=== PATIENT | male | born 1955 | race Caucasian/White ===

== ENCOUNTER 2020-06-29 14:17 | Emergency (ER) | payer OTHER ==
[~2020-06-29 14:17] MED LIST: ASPIRIN CHEWABL81 MG PO; CENTRUM SILVER1 EAC1 PO; CETIRIZINE HCL10 MG PO; CIPRO500 MG PO; CLARITIN10 MG PO; FLAGYL500 MG PO; GLUCOPHAGE 850850 MG PO; LEVOFLOXACIN500 MG PO; LISINOPRIL-HCT1 EACH PO; TYLENOL325 MG PO; VITAMIN C250 MG PO; ZESTRIL10 MG PO; ZOFRAN4 MG PO; ZYVOX600 MG PO
[2020-06-29] MEDS ORDERED: AUGMENTIN 875-1 EACH PO (16:30)
== END 2020-06-29 16:45 | disposition home or self-care (01) ==
LOC: ER1 14:17
DX: S61.217A Laceration without foreign body of left little finger without damage to nail, initial encounter (principal); E11.9 Type 2 diabetes mellitus without complications; I10 Essential (primary) hypertension; W22.8XXA Striking against or struck by other objects, initial encounter; Y92.009 Unspecified place in unspecified non-institutional (private) residence as the place of occurrence of the external cause
CPT/HCPCS: 12001; 73140; 99283

== ENCOUNTER 2020-09-29 20:17 | Emergency (ER) | payer OTHER ==
[~2020-09-29 20:17] MED LIST changes: +AUGMENTIN 875-1 EACH PO
[2020-09-29 20:48] LABS: HEMOGLOBIN 16.2 gm/dl (14.0-17.5); RED BLOOD COUNT 5.18 M/UL (4.20-5.50); WHITE BLOOD COUNT 11.4 K/UL (4.5-11.0)
[2020-09-29 21:10] LABS: BUN/CREATININE RATIO 22 (0-10)
== END 2020-09-30 01:23 | disposition home or self-care (01) ==
LOC: ER1 20:17
PROVIDERS: Family Medicine
DX: R07.9 Chest pain, unspecified (principal); I10 Essential (primary) hypertension; E11.65 Type 2 diabetes mellitus with hyperglycemia; R00.0 Tachycardia, unspecified
CPT/HCPCS: 71045; 80053; 82550; 82553; 83874; 84484; 85025; 85379; 93005; 99285

== ENCOUNTER → 2020-12-17 | Outpatient (CLI) | payer OTHER | LOC: HEART 5 12-11 08:00 | DX: R07.9 Chest pain, unspecified (principal); R94.39 Abnormal result of other cardiovascular function study | CPT/HCPCS: 78452; 93306; A9502; J2785 ==

== ENCOUNTER 2021-03-25 07:10 | Inpatient (IN) | payer OTHER ==
[~2021-03-25] VITALS: Ht 182.9 cm; Wt 117.9 kg
[2021-03-25 08:06] LABS: HEMOGLOBIN 14.9 gm/dl (14.0-17.5); RED BLOOD COUNT 4.92 M/UL (4.20-5.50); WHITE BLOOD COUNT 5.8 K/UL (4.5-11.0)
[2021-03-25 08:42] LABS: BUN/CREATININE RATIO 16 (0-10)
[2021-03-25] MEDS ORDERED: ZESTORETIC 10-1 EACH PO (13:59)
[2021-03-25] MEDS ORDERED: MULTIVITAMIN1 EACH PO (14:00)
[2021-03-26 06:46] LABS: RED BLOOD COUNT 4.62 M/UL (4.20-5.50); WHITE BLOOD COUNT 5.6 K/UL (4.5-11.0)
[2021-03-26 07:14] LABS: BUN/CREATININE RATIO 20 (0-10)
[2021-03-27 06:25] LABS: HEMOGLOBIN 13.7 gm/dl (14.0-17.5); RED BLOOD COUNT 4.68 M/UL (4.20-5.50)
[2021-03-27 06:27] LABS: WHITE BLOOD COUNT 13.1 K/UL (4.5-11.0)
[2021-03-27 06:42] LABS: BUN/CREATININE RATIO 22 (0-10)
[2021-03-28 07:39] LABS: RED BLOOD COUNT 4.39 M/UL (4.20-5.50); WHITE BLOOD COUNT 11.4 K/UL (4.5-11.0)
[2021-03-28 08:03] LABS: BUN/CREATININE RATIO 23 (0-10)
[2021-03-28] MEDS ORDERED: PROVENTIL HFA6.7 GM INH (12:15)
[2021-03-28] MEDS ORDERED: DOXYCYCLINE HY100 MG PO (12:15)
[2021-03-28] MEDS ORDERED: MEDROL DOSEPAK 24 MG PO (12:15)
[2021-03-28] MEDS ORDERED: OMNICEF 300 MG300 MG PO (12:15)
[2021-03-28] MEDS ORDERED: GLUCOPHAGE 500500 MG PO (12:17)
== END 2021-03-28 13:36 | disposition home or self-care (01) | DRG 177 ==
LOC: ER1 07:10 → CDU 10:25 → MED SURG 4 12:56
PROVIDERS: ADMIT Internal Medicine
PROC: XW033E5 Introduction of Remdesivir Anti-infective into Peripheral Vein, Percutaneous Approach, New Technology Group 5 (ICD-10-PCS; principal; 2021-03-25)
PROC: 3E0333Z Introduction of Anti-inflammatory into Peripheral Vein, Percutaneous Approach (ICD-10-PCS; 2021-03-25)
PROC: 8E0ZXY6 Isolation (ICD-10-PCS; 2021-03-25)
DX: U07.1 COVID-19 (principal); J12.82 Pneumonia due to coronavirus disease 2019; J96.01 Acute respiratory failure with hypoxia; E87.1 Hypo-osmolality and hyponatremia; D72.829 Elevated white blood cell count, unspecified; T38.0X5A Adverse effect of glucocorticoids and synthetic analogues, initial encounter; E66.9 Obesity, unspecified; E87.6 Hypokalemia; R19.7 Diarrhea, unspecified; E11.9 Type 2 diabetes mellitus without complications; Z79.82 Long term (current) use of aspirin; Z91.14 Patient's other noncompliance with medication regimen; Z68.35 Body mass index [BMI] 35.0-35.9, adult
CPT/HCPCS: 36415; 36600; 71045; 80053; 82550; 82553; 82728; 82803; 82962; 83036; 83735; 83874; 84132; 84484; 85025; 85027; 85379; 86140; 87040; 93005; 93970; 94640; 94664; 94760; 99285; J0696; J1100; J1335; J1650; J7030; Q9967; U0002

== ENCOUNTER 2021-05-20 07:27 | Emergency (ER) | payer OTHER ==
[~2021-05-20 07:27] MED LIST changes: +DOXYCYCLINE HY100 MG PO; +GLUCOPHAGE 500500 MG PO; +MEDROL DOSEPAK 24 MG PO; +MULTIVITAMIN1 EACH PO; +OMNICEF 300 MG300 MG PO; +PROVENTIL HFA6.7 GM INH; +ZESTORETIC 10-1 EACH PO
[2021-05-20 09:41] LABS: BUN/CREATININE RATIO 21 (0-10)
[2021-05-20 10:04] LABS: HEMOGLOBIN 15.9 gm/dl (14.0-17.5); RED BLOOD COUNT 5.4 M/UL (4.20-5.50); WHITE BLOOD COUNT 12.3 K/UL (4.5-11.0)
[2021-05-20] MEDS ORDERED: ONDANSETRON ODT4 MG SL (15:07)
[2021-05-20] MEDS ORDERED: PROTONIX40 MG PO (15:07)
[2021-05-21] MEDS ORDERED: GLUCOPHAGE 850850 MG PO (13:58)
[2021-05-21] MEDS ORDERED: CETIRIZINE HCL10 MG PO (14:00)
[2021-05-21] MEDS ORDERED: LISINOPRIL2.5 MG PO (14:00)
[2021-05-21] MEDS ORDERED: METOPROLOL TART50 MG PO (14:01)
[2021-05-21] MEDS ORDERED: ISOSORBIDE MONO30 MG PO (14:01)
== END 2021-05-20 15:35 | disposition home or self-care (01) ==
LOC: ER1 07:27
PROVIDERS: Physician Assistant
DX: K76.0 Fatty (change of) liver, not elsewhere classified (principal); K82.8 Other specified diseases of gallbladder; R07.9 Chest pain, unspecified; R00.0 Tachycardia, unspecified; E11.9 Type 2 diabetes mellitus without complications; I10 Essential (primary) hypertension
CPT/HCPCS: 71045; 76705; 80053; 81001; 82550; 82553; 83605; 83690; 83874; 84484; 85025; 87040; 93005; 96374; 96375; 96376; 99285; C9113; J2270; J2405; J3370; J7030; Q9967

== ENCOUNTER 2021-05-20 19:25 | Inpatient (IN) | payer OTHER ==
[~2021-05-20] VITALS: Ht 182.9 cm; Wt 122.5 kg
[~2021-05-20 19:25] MED LIST changes: +ONDANSETRON ODT4 MG SL; +PROTONIX40 MG PO
[2021-05-20 22:58] LABS: HEMOGLOBIN 16.2 gm/dl (14.0-17.5); RED BLOOD COUNT 5.24 M/UL (4.20-5.50)
[2021-05-20 23:42] LABS: BUN/CREATININE RATIO 17 (0-10)
[2021-05-21 07:53] LABS: WHITE BLOOD COUNT 11.4 K/UL (4.5-11.0)
[2021-05-21 07:58] LABS: HEMOGLOBIN 13.9 gm/dl (14.0-17.5); RED BLOOD COUNT 4.66 M/UL (4.20-5.50)
[2021-05-21 08:14] LABS: BUN/CREATININE RATIO 15 (0-10)
[2021-05-21] MEDS ORDERED: GLUCOPHAGE 850850 MG PO (13:58)
[2021-05-21] MEDS ORDERED: CETIRIZINE HCL10 MG PO (14:00)
[2021-05-21] MEDS ORDERED: LISINOPRIL2.5 MG PO (14:00)
[2021-05-21] MEDS ORDERED: ISOSORBIDE MONO30 MG PO (14:01)
[2021-05-21] MEDS ORDERED: METOPROLOL TART50 MG PO (14:01)
[2021-05-22 04:28] LABS: HEMOGLOBIN 13.5 gm/dl (14.0-17.5); RED BLOOD COUNT 4.49 M/UL (4.20-5.50); WHITE BLOOD COUNT 9.7 K/UL (4.5-11.0)
[2021-05-22 05:07] LABS: BUN/CREATININE RATIO 14 (0-10)
[2021-05-22 09:13] LABS: HBSAG SCREEN Negative (Negative); HEP A AB, IGM Negative (Negative); HEP B CORE AB, IGM Negative (Negative); HEP C VIRUS AB <0.1 (0.0-0.9)
[2021-05-23 04:53] LABS: HEMOGLOBIN 13.6 gm/dl (14.0-17.5); RED BLOOD COUNT 4.52 M/UL (4.20-5.50); WHITE BLOOD COUNT 9.7 K/UL (4.5-11.0)
[2021-05-23 05:34] LABS: BUN/CREATININE RATIO 13 (0-10)
[2021-05-24] MEDS ORDERED: METOPROLOL TART50 MG PO (11:01)
[2021-05-24] MEDS ORDERED: CEPHALEXIN500 M1 PO (14:06)
[2021-05-24] MEDS ORDERED: TOPROL XL25 MG PO (14:09)
== END 2021-05-24 15:50 | disposition home or self-care (01) | DRG 871 ==
LOC: ER1 19:25 → CDU 05-21 03:21 → PROG CARE 05-21 17:20 → MED SURG 4 05-22 15:15
PROVIDERS: Emergency Medicine; Physician Assistant; ADMIT Internal Medicine
PROC: 8E0ZXY6 Isolation (ICD-10-PCS; principal; 2021-05-21)
DX: A41.9 Sepsis, unspecified organism (principal); U07.1 COVID-19; L03.116 Cellulitis of left lower limb; E87.1 Hypo-osmolality and hyponatremia; E11.9 Type 2 diabetes mellitus without complications; E80.6 Other disorders of bilirubin metabolism; I25.10 Atherosclerotic heart disease of native coronary artery without angina pectoris; K75.89 Other specified inflammatory liver diseases; K76.0 Fatty (change of) liver, not elsewhere classified; I10 Essential (primary) hypertension; K21.9 Gastro-esophageal reflux disease without esophagitis; Z91.14 Patient's other noncompliance with medication regimen; Z79.4 Long term (current) use of insulin; Z87.81 Personal history of (healed) traumatic fracture; Z83.3 Family history of diabetes mellitus
CPT/HCPCS: 36415; 73701; 80048; 80053; 80074; 80202; 82962; 83605; 83735; 83880; 85025; 85027; 85652; 86140; 87040; 93971; 96365; 96366; 96368; 96372; 96375; 96376; 99284; G0378; J0692; J0696; J1650; J2185; J2405; J2550; J3370; J7030; J7070; Q9967; U0002